=== PATIENT | female | born 1935 | race Caucasian/White ===

== ENCOUNTER 2019-03-15 08:53 | Outpatient (RCR) | payer MEDICARE ==
[~2019-03-15 08:53] MED LIST: BLOOD PRESSURE MED; MINOCYCLINE HCL50 MG PO; XANAX0.25 MG PO; ZOLOFT50 MG PO; tylenol PO
== END 2019-03-21 ==
LOC: PT 08:53
PROVIDERS: ATTEND Specialist
DX: M17.11 Unilateral primary osteoarthritis, right knee (principal); M25.561 Pain in right knee; M62.81 Muscle weakness (generalized)

== ENCOUNTER → 2020-08-13 | Outpatient (CLI) | payer MEDICARE | LOC: DX 10:19 | PROVIDERS: ATTEND Family Medicine | DX: M81.0 Age-related osteoporosis without current pathological fracture (principal) | CPT/HCPCS: 77080 ==

== ENCOUNTER → 2020-08-25 | Outpatient (CLI) | payer MEDICARE | LOC: MAMMO 13:16 | PROVIDERS: ATTEND Family Medicine | DX: Z12.31 Encounter for screening mammogram for malignant neoplasm of breast (principal) | CPT/HCPCS: 77067 ==